=== PATIENT | male | born 1960 | race African-American/Black ===

== ENCOUNTER 2023-08-16 15:10 | Inpatient (IN) | payer BC ==
[~2023-08-16] VITALS: Ht 175.3 cm; Wt 74.8 kg
[2023-08-16 15:17] VITALS: O2SAT 100
[2023-08-16 16:25] LABS: BASOPHILS % 0.4 % (0.0-2.0); HEMATOCRIT. 23.1 % (42.0-52.0); HEMOGLOBIN. 7.5 g/dL (14.0-18.0); LYMPHOCYTES % 13.5 % (20.0-50.0); MEAN CORPUSCULAR HEMOGLOBIN 26.8 pg (28.0-32.0); MEAN CORPUSCULAR HGB CONC 32.3 g/dL (31.0-37.0); MEAN CORPUSCULAR VOLUME 82.9 fL (80.0-94.0); MONOCYTES % 5.3 % (2.0-8.0); NEUTROPHILS % 80.8 % (40.0-76.0); PLATELET 269 x1000/uL (130-400); RED BLOOD CELL COUNT 2.79 mill/uL (4.7-6.1); RED CELL DISTRIBUTION WIDTH 13.8 % (11.6-14.6); WHITE BLOOD COUNT 13.7 x1000/uL (4.5-11.0)
[2023-08-16 16:27] LABS: DIFFERENTIAL COMMENT 1
[2023-08-16 16:41] LABS: ALANINE AMINOTRANSFERASE 16 IU/L (10-49); ALBUMIN 4.2 g/dL (3.2-4.8); ASPARTATE AMINOTRANSFERASE 21 IU/L (<34); BILIRUBIN TOTAL 0.7 mg/dL (0.1-1.0); CALCIUM 8.3 mg/dL (8.7-10.4); CARBON DIOXIDE 22 mEq/L (21-32); CHLORIDE 97 mEq/L (98-107); CREATININE 1.2 mg/dL (0.6-1.3); GLUCOSE 248 mg/dL (70-105); POTASSIUM 5.6 mEq/L (3.5-5.1); PROTEIN TOTAL 6.3 g/dL (6.0-8.3); SODIUM 129 mEq/L (136-145); UREA NITROGEN BLOOD 26 mg/dL (9-23)
[2023-08-16] MEDS ORDERED: ALBUTEROL (0.083%) 2.5MG/3ML NEB HHN ONE (18:00)
[2023-08-16] MEDS ORDERED: INSULIN REGULAR (HUMULIN R) 300UNITS/3ML VIAL IV ONE (18:00)
[2023-08-16] MEDS ORDERED: CALCIUM CHLORIDE 1GM/10ML SYR IV ONE (18:00)
[2023-08-16] MEDS ORDERED: DEXTROSE 50% WATER 50ML SYRINGE IV ONE (18:00)
[2023-08-16 19:18] LABS: TROPONIN I HIGH SENSITIVITY 8 ng/L (3.0-53)
[2023-08-16] MEDS: ALBUTEROL (0.083%) 2.5MG/3ML NEB HHN NR (19:45)
[2023-08-16] MEDS: CALCIUM CHLORIDE 1GM/10ML SYR IV NR (19:55)
[2023-08-16] MEDS: DEXTROSE 50% WATER 50ML SYRINGE IV NR (19:55)
[2023-08-16] MEDS: INSULIN REGULAR (HUMULIN R) 300UNITS/3ML VIAL IV NR (19:55)
[2023-08-17] VITALS (8 sets, daily range): BP systolic 97–109; BP diastolic 54–60; PULSE 74–77; RESP 19–20; TEMP 97.7–98.8
[2023-08-17] MEDS: SODIUM CHLORIDE 0.9% 1,000 ML IV ONE (04:42)
[2023-08-17] MEDS ORDERED: DIPHENHYDRAMINE 50MG/ML VIAL IV PRN (09:15)
[2023-08-17] MEDS ORDERED: CLONIDINE 0.1MG TABLET PO PRN (09:15)
[2023-08-17] MEDS ORDERED: ONDANSETRON HCL 4MG/2ML INJ IV PRN (09:15)
[2023-08-17] MEDS ORDERED: ACETAMINOPHEN 325MG TABLET PO PRN (09:15)
[2023-08-17] MEDS ORDERED: IPRATROPIUM/ALBUTEROL 0.5-3(2.5)MG/3ML NEB HHN PRN (09:15)
[2023-08-17] MEDS ORDERED: DEXTROSE 50% WATER 50ML SYRINGE IV PRN (09:15)
[2023-08-17] MEDS: SODIUM CHLORIDE 0.9% 1,000 ML IV SCH (09:48)
[2023-08-17] MEDS: BLOOD SUGAR DIAGNOSTIC STRIP TEST SCH (12:10)
[2023-08-17] MEDS ORDERED: TELM20TA8 MT (12:22)
[2023-08-17] MEDS ORDERED: METF-416 MT (12:22)
[2023-08-17] MEDS ORDERED: ATOR40TA70 MT (12:22)
[2023-08-17] MEDS ORDERED: GLIP10TA10 PO (12:22)
[2023-08-17 13:19] LABS: BASOPHILS % 0.4 % (0.0-2.0); DIFFERENTIAL COMMENT 0; EOSINOPHILS % 0.1 % (0.0-5.0); LYMPHOCYTES % 16.4 % (20.0-50.0); MEAN CORPUSCULAR HGB CONC 32.9 g/dL (31.0-37.0); MEAN CORPUSCULAR VOLUME 85.2 fL (80.0-94.0); MEAN PLATELET VOLUME 7.8 fl (7.4-10.4); MONOCYTES % 10.2 % (2.0-8.0); NEUTROPHILS % 72.9 % (40.0-76.0); PLATELET 223 x1000/uL (130-400); RED CELL DISTRIBUTION WIDTH 13.9 % (11.6-14.6); WHITE BLOOD COUNT 10.8 x1000/uL (4.5-11.0)
[2023-08-17 13:25] LABS: HEMOGLOBIN. 6.2 g/dL (14.0-18.0)
[2023-08-17 13:26] LABS: HEMATOCRIT. 18.7 % (42.0-52.0)
[2023-08-17] MEDS: INSULIN LISPRO 100 UNITS/ML SUBCUT SCH (13:27)
[2023-08-17 13:28] LABS: CALCIUM 8.4 mg/dL (8.7-10.4); CARBON DIOXIDE 25 mEq/L (21-32); CHLORIDE 102 mEq/L (98-107); CREATININE 1.2 mg/dL (0.6-1.3); GLUCOSE 229 mg/dL (70-105); IRON 26 ug/dL (65-175); POTASSIUM 4.3 mEq/L (3.5-5.1); SODIUM 132 mEq/L (136-145); UREA NITROGEN BLOOD 20 mg/dL (9-23)
[2023-08-17 13:31] LABS: PROTHROMBIN TIME 10.8 sec (9.6-11.0)
[2023-08-17 13:35] LABS: FERRITIN 24 ng/mL (22-322); FOLIC ACID (FOLATE) SERUM 12.72 ng/mL (>5.38); VITAMIN B12 SERUM 287 pg/mL (211-911)
[2023-08-17] MEDS ORDERED: DIATR MEGLU/DIATRIZOATE SOLN 30ML PO SCH (13:45)
[2023-08-17] MEDS: PANTOPRAZOLE SODIUM 40 MG/VIAL IV SCH (15:18)
[2023-08-17] MEDS: SUCRALFATE 1G TABLET PO SCH (18:25)
[2023-08-17 20:34] LABS: HEMATOCRIT 21.5 % (42.0-52.0); HEMOGLOBIN 7.1 g/dL (14.0-18.0)
[2023-08-18] VITALS (11 sets, daily range): BP systolic 92–133; BP diastolic 40–61; PULSE 59–79; RESP 14–20; TEMP 96.9–98.5
[2023-08-18 07:13] LABS: BASOPHILS % 0.4 % (0.0-2.0); EOSINOPHILS % 0.6 % (0.0-5.0); HEMATOCRIT. 25.7 % (42.0-52.0); HEMOGLOBIN. 8.7 g/dL (14.0-18.0); MEAN CORPUSCULAR HEMOGLOBIN 29.3 pg (28.0-32.0); MEAN CORPUSCULAR HGB CONC 33.9 g/dL (31.0-37.0); MEAN CORPUSCULAR VOLUME 86.3 fL (80.0-94.0); MEAN PLATELET VOLUME 8.3 fl (7.4-10.4); MONOCYTES % 9.6 % (2.0-8.0); NEUTROPHILS % 70.4 % (40.0-76.0); PLATELET 215 x1000/uL (130-400); RED BLOOD CELL COUNT 2.98 mill/uL (4.7-6.1); RED CELL DISTRIBUTION WIDTH 15.1 % (11.6-14.6); WHITE BLOOD COUNT 9.7 x1000/uL (4.5-11.0)
[2023-08-18 07:38] LABS: ALANINE AMINOTRANSFERASE 14 IU/L (10-49); ALBUMIN 3.4 g/dL (3.2-4.8); ASPARTATE AMINOTRANSFERASE 20 IU/L (<34); BILIRUBIN TOTAL 0.7 mg/dL (0.1-1.0); CALCIUM 7.7 mg/dL (8.7-10.4); CARBON DIOXIDE 24 mEq/L (21-32); CHLORIDE 105 mEq/L (98-107); CREATININE 1.3 mg/dL (0.6-1.3); GLUCOSE 178 mg/dL (70-105); POTASSIUM 4.2 mEq/L (3.5-5.1); PROTEIN TOTAL 5.1 g/dL (6.0-8.3); SODIUM 136 mEq/L (136-145); UREA NITROGEN BLOOD 15 mg/dL (9-23)
[2023-08-18] MEDS: ATORVASTATIN CALCIUM 40MG TABLET PO SCH (09:08)
[2023-08-18] MEDS: DIATR MEGLU/DIATRIZOATE SOLN 30ML PO SCH (09:53)
[2023-08-18] MEDS: CYANOCOBALAMIN 1000MCG/ML VIAL IM SCH (14:51)
[2023-08-19] VITALS: BP 110/55; PULSE 57; RESP 19; TEMP 98.8
[2023-08-19 03:40] LABS: BASOPHILS % 0.9 % (0.0-2.0); EOSINOPHILS % 1.3 % (0.0-5.0); HEMATOCRIT. 25.4 % (42.0-52.0); HEMOGLOBIN. 8.5 g/dL (14.0-18.0); LYMPHOCYTES % 19.9 % (20.0-50.0); MEAN CORPUSCULAR HEMOGLOBIN 28.9 pg (28.0-32.0); MEAN CORPUSCULAR HGB CONC 33.5 g/dL (31.0-37.0); MEAN CORPUSCULAR VOLUME 86.3 fL (80.0-94.0); MEAN PLATELET VOLUME 7.8 fl (7.4-10.4); MONOCYTES % 9.9 % (2.0-8.0); PLATELET 231 x1000/uL (130-400); RED BLOOD CELL COUNT 2.95 mill/uL (4.7-6.1); RED CELL DISTRIBUTION WIDTH 14.9 % (11.6-14.6); WHITE BLOOD COUNT 8.1 x1000/uL (4.5-11.0)
[2023-08-19 03:43] LABS: CALCIUM 7.7 mg/dL (8.7-10.4); CARBON DIOXIDE 27 mEq/L (21-32); CHLORIDE 108 mEq/L (98-107); CREATININE 1.2 mg/dL (0.6-1.3); GLUCOSE 108 mg/dL (70-105); IRON 24 ug/dL (65-175); POTASSIUM 4.1 mEq/L (3.5-5.1); SODIUM 140 mEq/L (136-145); TOTAL IRON BINDING CAPACITY 185 ug/dl (250-425); UREA NITROGEN BLOOD 11 mg/dL (9-23)
[2023-08-19 04:00] VITALS: BP 137/63; PULSE 61; RESP 18; TEMP 98.4
[2023-08-19 04:43] LABS: PROTHROMBIN TIME 10.7 sec (9.6-11.0)
[2023-08-19 08:00] VITALS: BP 138/67; PULSE 58; RESP 20; TEMP 98
[2023-08-19 12:00] VITALS: BP 163/83; PULSE 70; RESP 20; TEMP 97.3
[2023-08-19] MEDS ORDERED: LIDOCAINE HCL 1% 10 MG/ML 10ML VIAL ONE (14:05)
[2023-08-19] MEDS ORDERED: PROPOFOL 200MG/20ML VIAL IV ONE (14:06)
[2023-08-19 16:00] VITALS: BP 118/52; PULSE 71; RESP 20; TEMP 97.2
[2023-08-19 20:00] VITALS: BP 112/53; PULSE 82; RESP 18; TEMP 98.1
[2023-08-20] VITALS: BP 106/55; PULSE 76; RESP 18; TEMP 97.9
[2023-08-20 04:00] VITALS: BP 97/54; PULSE 74; RESP 18; TEMP 97.9
[2023-08-20 06:27] LABS: CALCIUM 7.5 mg/dL (8.7-10.4); CARBON DIOXIDE 25 mEq/L (21-32); CHLORIDE 109 mEq/L (98-107); CREATININE 1.1 mg/dL (0.6-1.3); GLUCOSE 139 mg/dL (70-105); POTASSIUM 3.9 mEq/L (3.5-5.1); SODIUM 140 mEq/L (136-145); UREA NITROGEN BLOOD 13 mg/dL (9-23)
[2023-08-20 06:30] LABS: BASOPHILS % 0.5 % (0.0-2.0); EOSINOPHILS % 0.9 % (0.0-5.0); HEMATOCRIT. 26.5 % (42.0-52.0); LYMPHOCYTES % 12.2 % (20.0-50.0); MEAN CORPUSCULAR HEMOGLOBIN 29.2 pg (28.0-32.0); MEAN CORPUSCULAR HGB CONC 33.9 g/dL (31.0-37.0); MEAN CORPUSCULAR VOLUME 86.2 fL (80.0-94.0); MEAN PLATELET VOLUME 8.3 fl (7.4-10.4); MONOCYTES % 7.4 % (2.0-8.0); PLATELET 251 x1000/uL (130-400); RED BLOOD CELL COUNT 3.07 mill/uL (4.7-6.1); RED CELL DISTRIBUTION WIDTH 15.2 % (11.6-14.6)
[2023-08-20 08:00] VITALS: BP 105/53; PULSE 73; RESP 18; TEMP 97.6
[2023-08-20] MEDS ORDERED: PANT40TA51 MT (12:08)
[2023-08-20] MEDS ORDERED: CYAN10003 SL (12:08)
[2023-08-20] MEDS ORDERED: SUCR1TAB30 PO (12:09)
== END 2023-08-20 17:55 | disposition home or self-care (01) | DRG 378 ==
LOC: ER 15:15 → EDBEDREQ 22:54 → EDBEDREQTM 22:54 → 8WST 08-17 10:39
PROVIDERS: ADMIT Internal Medicine; ATTEND Internal Medicine
PROC: 30233N1 Transfusion of Nonautologous Red Blood Cells into Peripheral Vein, Percutaneous Approach (ICD-10-PCS; 2023-08-17)
PROC: 0DB78ZX Excision of Stomach, Pylorus, Via Natural or Artificial Opening Endoscopic, Diagnostic (ICD-10-PCS; principal; 2023-08-19)
DX: K29.71 Gastritis, unspecified, with bleeding (principal); E87.1 Hypo-osmolality and hyponatremia; K29.81 Duodenitis with bleeding; I95.9 Hypotension, unspecified; D50.0 Iron deficiency anemia secondary to blood loss (chronic); E11.65 Type 2 diabetes mellitus with hyperglycemia; I10 Essential (primary) hypertension; D50.9 Iron deficiency anemia, unspecified; K26.4 Chronic or unspecified duodenal ulcer with hemorrhage; E87.5 Hyperkalemia; E78.00 Pure hypercholesterolemia, unspecified; Z79.82 Long term (current) use of aspirin; K57.30 Diverticulosis of large intestine without perforation or abscess without bleeding
CPT/HCPCS: 36415; 71045; 74176; 80048; 80053; 82270; 82607; 82728; 82746; 82962; 83036; 83540; 83550; 83880; 84484; 85014; 85018; 85025; 85044; 86850; 86900; 86920; 88305; 93005; 93970; 99285; C9113; J1815; J2704; J3420; J3490; J7030; P9016; Q9963